=== PATIENT | female | born 1950 | race Caucasian/White ===

== ENCOUNTER 2023-01-01 13:03 | Emergency (ER) | payer MEDICARE, OTHER ==
[2023-01-01] MEDS ORDERED: Orphenadrine 100 MG Tab.ER PO ONE (13:44)
[2023-01-01 15:27] LABS: APPEARANCE,URINE CLEAR (Clear); BILIRUBIN,URINE NEGATIVE (Negative); COLOR,URINE YELLOW (Yellow); GLUCOSE,URINE NEGATIVE (Negative); KETONES,URINE 1+ (Negative); LEUKOCYTE ESTERASE,URINE NEGATIVE (Negative); NITRITE,URINE NEGATIVE (Negative); OCCULT BLOOD,URINE NEGATIVE (Negative); PROTEIN,URINE NEGATIVE (Negative)
[2023-01-01 15:34] LABS: BASOPHILS ABSOLUTE AUTO 0.04 K/mm3 (0.01-0.08); BASOPHILS PERCENT AUTO 0.5 % (0.1-1.2); EOSINOPHILS ABSOLUTE AUTO 0.17 K/mm3 (0.04-0.36); HEMOGLOBIN 13.5 gm/dl (11.2-15.7); IMMATURE GRAN ABSOLUTE AUTO 0.01 K/mm3 (0.00-0.10); IMMATURE GRAN PERCENT AUTO 0.1 % (<=1.0); LYMPHOCYTES ABSOLUTE AUTO 2.44 K/mm3 (1.18-3.74); LYMPHOCYTES PERCENT AUTO 28.4 % (19.3-51.7); MEAN CORPUSCULAR HEMOGLOBIN 28.8 pg (25.6-32.2); MEAN CORPUSCULAR HGB CONC 32.1 g/dl (32.2-35.5); MEAN CORPUSCULAR VOLUME 89.7 fl (79.4-94.8); MEAN PLATELET VOLUME 9.9 fl (9.4-12.3); MONOCYTES ABSOLUTE AUTO 0.57 K/mm3 (0.24-0.36); MONOCYTES PERCENT AUTO 6.6 % (4.7-12.5); NEUTROPHILS ABSOLUTE AUTO 5.35 K/mm3 (1.56-6.13); NEUTROPHILS PERCENT AUTO 62.4 % (34.0-71.1); PLATELET COUNT,PLT 286 K/mm3 (182-369); RED BLOOD CELL COUNT 4.68 M/mm3 (3.98-5.22); WHITE BLOOD CELL COUNT,WBC 8.58 K/mm3 (3.98-10.04)
[2023-01-01 15:56] LABS: ALBUMIN 3.5 g/dl (3.4-5.0); ANION GAP 12.3 (5-15); BILIRUBIN TOTAL 0.3 mg/dL (0.2-1.0); BUN/CREATININE RATIO 31.3 (14-18); CALCIUM 8.9 mg/dL (8.5-10.1); CREATININE 0.8 mg/dL (0.55-1.02); EST CRCL DRUG DOSING (CG) 54.08 mL/min; POTASSIUM,K 4.3 mEq/L (3.5-5.1); PROTEIN TOTAL,TP 6.9 g/dl (6.4-8.2)
[2023-01-01] MEDS ORDERED: Ketorolac 60 MG/2 ML SDV IM ONE (16:00)
[2023-01-01] MEDS ORDERED: Ketorolac 60 MG/2 ML SDV ONE (18:53)
== END 2023-01-01 19:00 | disposition home or self-care (01) ==
LOC: JD.ED 13:03
DX: M54.50 Low back pain, unspecified (principal)
CPT/HCPCS: 36415; 80053; 81003; 85025; 96372; 99283; A9270; J1885; 99284